=== PATIENT | male | born 1960 | race Caucasian/White ===

== ENCOUNTER 2018-08-28 08:09 | Emergency (ER) | payer OTHER ==
[2018-08-28 08:17] VITALS: BP 136/96
--- NOTE | 2018-08-28 08:23 | EDPHY ---
H & P Stated Complaint: Pain and swelling to right index finger. Time Seen by Provider: 08/28/18 08:19 HPI/ROS: CHIEF COMPLAINT: Right index finger infection HISTORY OF PRESENT ILLNESS: The patient presents to the ED with pain, swelling erythema to the tip of his right index finger. The patient's symptoms have been present for the past week. The patient denies any history of known trauma. He denies fever. He denies any acute neurologic symptoms. The patient denies prior history of soft tissue infections. He has moderate pain to palpation to the tip of his finger. REVIEW OF SYSTEMS: A comprehensive 10 point review of systems is otherwise negative aside from elements mentioned in the history of present illness. Source: Patient Exam Limitations: No limitations - Personal History Current Tetanus Diphtheria and Acellular Pertussis (TDAP): Yes - Medical/Surgical History Hx Asthma: No Hx Chronic Respiratory Disease: No Hx Diabetes: No Hx Cardiac Disease: No Hx Renal Disease: No Hx Cirrhosis: No Hx Alcoholism: No Hx HIV/AIDS: No Hx Splenectomy or Spleen Trauma: Yes Other PMH: Afib. Htn. - Social History Smoking Status: Current every day smoker - Physical Exam Exam: General Appearance: Alert, no distress Eyes: Pupils equal and round no pallor or injection ENT, Mouth: Mucous membranes moist Respiratory: There are no retractions, lungs are clear to auscultation Cardiovascular: Regular rate and rhythm Gastrointestinal: Abdomen is soft and nontender, no masses, bowel sounds normal Neurological: Intact neurologic function noted in the right hand Skin: Erythema, tenderness and swelling noted to the tip of the right index finger Musculoskeletal: Normal range of motion noted throughout the right hand and upper extremity. No clinical evidence of septic arthritis Extremities: No additional effusions, arthralgias or painful extremities noted on exam Constitutional: Initial Vital Signs Temperature (C) 36.6 C 08/28/18 08:13 Heart Rate 100 08/28/18 08:13 Respiratory Rate 16 08/28/18 08:13 Blood Pressure 136/96 H 08/28/18 08:13 O2 Sat (%) 97 08/28/18 08:13 O2 Delivery Mode Room Air Allergies/Adverse Reactions: No Known Allergies Allergy (Unverified 08/28/18 08:17) Home Medications: Medication Instructions Recorded Cephalexin [Keflex] 500 mg PO TID #21 cap 08/28/18 Lipitor 08/28/18 Toprol Xl 08/28/18 Medical Decision Making - Diagnostics Imaging Results: Imaging Impressions Finger X-Ray 08/28/18 08:38 Impression: Camp soft tissue swelling. Procedures: Procedure: Felon Abscess drainage. The patient's felon abscess was located on the right index finger. Risks, benefits, alternatives discussed with the patient and consent obtained. The abscess was incised with a #11 blade and purulent drainage was expressed. The wound was irrigated and packed. The patient tolerated the procedure well. The procedure was performed by myself. ED Course/Re-evaluation: The patient presents to the ED with a felon involving his right 1st finger. The patient has no clinical evidence of a septic arthritis or tenosynovitis. I did curbside Dr. Sam in the emergency department who recommends incision and drainage in the ED and follow up with him in the office. Differential Diagnosis: Differential diagnosis considered includes cellulitis, abscess, foreign body Departure - Departure Disposition: Home, Routine, Self-Care Clinical Impression: Felon of finger of right hand Condition: Good Instructions: Abscess (ED) Additional Instructions: 1. Please take antibiotics as directed. 2. Please leave packing in place until seen in follow-up by Orthopedic surgery. 3. Please contact the orthopedic hand surgeon, Dr. Dave Sam, who had been referred to to schedule a recheck on Friday. Please contact his office today to schedule a follow-up visit. Please let them know that you were seen by Dr. Sam in the emergency department. 4. Return to the ED for markedly worsening pain, swelling or other concerns. Referrals: Luis Sam MD [Medical Doctor] - As per Instructions Prescriptions: Cephalexin [Keflex] 500 mg PO TID #21 cap
== END 2018-08-28 09:23 | disposition home or self-care (01) ==
PROC: 0H9GXZZ Drainage of Left Hand Skin, External Approach (ICD-10-PCS; principal; 2018-08-28)
DX: L02.511 Cutaneous abscess of right hand (principal); L03.011 Cellulitis of right finger